=== PATIENT | male | born 1970 | race African-American/Black ===

== ENCOUNTER 2019-06-10 15:10 | Emergency (ER) | payer SELFPAY ==
[~2019-06-10] VITALS: Ht 180.3 cm; Wt 59.0 kg
--- NOTE | 2019-06-10 15:23 | NUR ---
at bedside to examine patient.
[2019-06-10] MEDS ORDERED: FAMOTIDINE. 20 MG/2 ML VIAL IV ONE (15:30)
[2019-06-10] MEDS ORDERED: ONDANSETRON 4 MG/2 ML VIAL IV ONE (15:30)
[2019-06-10] MEDS ORDERED: IV NORMAL SALINE 1000 ML BAG IV ONE (15:30)
--- NOTE | 2019-06-10 15:35 | NUR ---
Attempst to start IV access for fluid replacement and patient shaking crying and forcefully removing arm from needle, friend at bedside encouraging patient to allow procedure. Dr. joyner.
[2019-06-10] MEDS ORDERED: ONDANSETRON ODT 4 MG TAB.RAPDIS ONE (15:56)
[2019-06-10] MEDS ORDERED: FAMOTIDINE 20 MG TABLET ONE (15:56)
--- NOTE | 2019-06-10 15:57 | NUR ---
At this time patient refused treatment and left AMA. discussed possible complications patient still refuse and left AMA. left room [id number]. refusing vitals signs. Pt's calender tender forcing pt. to received treatment.
[2019-06-10] MEDS ORDERED: FAMOTIDINE 20 MG TABLET PO ONE (16:00)
[2019-06-10] MEDS ORDERED: ONDANSETRON ODT 4 MG TAB.RAPDIS SL ONE (16:00)
== END 2019-06-10 16:00 | disposition left against medical advice (07) ==
LOC: ER 15:12
DX: R11.2 Nausea with vomiting, unspecified (principal); I10 Essential (primary) hypertension; F17.200 Nicotine dependence, unspecified, uncomplicated
CPT/HCPCS: A4663; J7030; Q0162